=== PATIENT | female | born 1945 | race Caucasian/White ===

== ENCOUNTER 2016-12-22 19:07 | Emergency (ER) | payer MEDICARE, OTHER ==
[~2016-12-22 19:07] MED LIST: ASAB PO; ASTELIN NAS; LIOR10 PO; MELATONIN5 M1 PO; METAMUCIL CAN7 OZ PO; MULTIVIT/MIN PO; REFRES1 OPH; ULTRAM50 PO; XANAX1 MG PO
== END 2016-12-22 23:30 | disposition home or self-care (01) ==
LOC: ER 19:07
DX: S80.01XA Contusion of right knee, initial encounter (principal); J44.9 Chronic obstructive pulmonary disease, unspecified; F41.9 Anxiety disorder, unspecified; F17.200 Nicotine dependence, unspecified, uncomplicated; Z90.710 Acquired absence of both cervix and uterus; Z96.651 Presence of right artificial knee joint; Z96.643 Presence of artificial hip joint, bilateral; Z88.0 Allergy status to penicillin; Z88.5 Allergy status to narcotic agent; Z79.82 Long term (current) use of aspirin; Z79.899 Other long term (current) drug therapy; W23.0XXA Caught, crushed, jammed, or pinched between moving objects, initial encounter
CPT/HCPCS: 73560-RT; 73590-RT; 96372; 99284; A9270-GY; J1885; J2360